=== PATIENT | male | born 1945 ===

== ENCOUNTER 2021-09-14 08:15 | Inpatient (IN) | payer OTHER ==
[2021-09-14] MEDS ORDERED: ZESTRIL5 MG (11:46)
[2021-09-14] MEDS ORDERED: ARICEPT5 MG (11:46)
[2021-09-14] MEDS ORDERED: ATORVASTATIN CA40 MG (11:46)
[2021-09-17] MEDS ORDERED: GABAPENTIN100 M2 (10:43)
[2021-09-17] MEDS ORDERED: METOPROLOL SUCC25 MG (10:44)
[2021-09-17] MEDS ORDERED: NABUMETONE750 MG (10:44)
[2021-09-17] MEDS ORDERED: MELOXICAM15 MG (10:44)
[2021-09-19] MEDS ORDERED: BACTRIM DS TAB1 EACH PO (06:36)
[2021-09-19] MEDS ORDERED: ELIQUIS2.5 MG PO (06:36)
[2021-09-19] MEDS ORDERED: INTEGRA PLUS C1 EACH PO (06:36)
[2021-09-19] MEDS ORDERED: OXYC1TAB9 PO (06:36)
== END 2021-09-19 18:49 | disposition home or self-care (01) | DRG 470 ==
LOC: O/R 09-17 05:30 → SURH 09-17 05:30
PROVIDERS: ADMIT Orthopaedic Surgery Sports Medicine; ATTEND Orthopaedic Surgery Sports Medicine
PROC: 0SRC0J9 Replacement of Right Knee Joint with Synthetic Substitute, Cemented, Open Approach (ICD-10-PCS; principal; 2021-09-17 12:45)
DX: M17.11 Unilateral primary osteoarthritis, right knee (principal); Z20.822 Contact with and (suspected) exposure to COVID-19

== ENCOUNTER 2022-06-28 07:21 | Outpatient (CLI) | payer OTHER ==
[~2022-06-28 07:21] MED LIST: ARICEPT5 MG; ATORVASTATIN CA40 MG; BACTRIM DS TAB1 EACH PO; ELIQUIS2.5 MG PO; GABAPENTIN100 M2; INTEGRA PLUS C1 EACH PO; MELOXICAM15 MG; METOPROLOL SUCC25 MG; NABUMETONE750 MG; OXYC1TAB9 PO; ZESTRIL5 MG
== END 2022-06-28 07:30 | disposition home or self-care (01) ==
LOC: RAD 07:21
PROVIDERS: ATTEND Otolaryngology Plastic Surgery within the Head & Neck
DX: R13.19 Other dysphagia (principal); R09.89 Other specified symptoms and signs involving the circulatory and respiratory systems